=== PATIENT | male | born 1970 | race African-American/Black ===

== ENCOUNTER → 2016-12-27 | Outpatient (CLI) | payer OTHER ==
[~2016-12-27] MED LIST: BACLOFEN10 MG PO; BACTRIM DS TABL1 TA1 PO; BENTYL20 M1 PO; CIPRO PO; CIPRO XR 500 M500 MG PO; CIPRO250 M1 PO; CLEOCIN PO; FIORICET 50-321 EACH PO; FLAGYL PO; FLAGYL250 M1 PO; IBUPROFEN100 MG PO; LORTAB 10-3251 EACH PO; LORTAB 10-5001 EACH PO; LORTAB 5/500 TA1 TA1 PO; LORTAB 5/500 TA1 TA2 PO; METRONIDAZOLE PO; NO MEDICATIONS; NORCO1 TAB 10/3 PO; OTC PAIN RELIEVER; PERCOCET PO; PHENERGAN PO; PHENERGAN25 M1 PO; PRILOSEC PO; SKELAXIN PO; TYLENOL #3 PO; [UNRECOGNIZED DRUG - REMARK]
== END | disposition home or self-care (01) ==
LOC: CAMB 13:49
DX: Z01.812 Encounter for preprocedural laboratory examination (principal); K40.90 Unilateral inguinal hernia, without obstruction or gangrene, not specified as recurrent
CPT/HCPCS: 36415; 80053

== ENCOUNTER → 2016-12-31 | Day surgery (SDC) | payer OTHER ==
[2016-12-27 15:27] LABS: ALBUMIN SERUM 4.1 g/dL (3.5-5.0); BILIRUBIN,TOTAL 0.5 mg/dL (0.2-2.0); CALCIUM SERUM 9.2 mg/dL (8.4-10.2); GLOM FILT RATE Estimated 105.6 mL/min (>60); POTASSIUM 4.3 mmol/L (3.5-5.1); PROTEIN TOTAL SERUM 7.3 g/dL (6.0-8.3)
--- NOTE | ~2016-12-31 | OR ---
Unit #: [id number] #: [id number] Patient: YASMINE MONTAGUE JR [id number] [address] [place], [place] [address] [id number] O MR#: [id number] NAME: YASMINE MONTAGUE JR ROOM: Date of Procedure: 12/31/2016 Admission Date: 12/31/2016 Surgeon: Jed Geiger Jr., M.D. : 1970 Attending Physician: Jed Geiger Jr., M.D. Primary Care Physician: Kiet Garcia M.D. OPERATIVE REPORT INDICATIONS FOR PROCEDURE The patient is a 46-year-old black male, who recently was referred to the office complaining of swelling in the left inguinal area. He was noted to have an incarcerated left inguinal hernia, which was tender and he is brought at this time for repair of this. He understands the procedure including the risks, including that of recurrence, infection, cord injury with injury to the testicle, infection, and hematoma formation, and consents. PREOPERATIVE DIAGNOSIS Incarcerated left inguinal hernia. POSTOPERATIVE DIAGNOSIS Incarcerated left inguinal hernia, noting a portion of colon forming a portion of the wall of the hernia. The hernia itself was direct inguinal hernia. This made up most of the floor of the inguinal canal. ANESTHESIA General with LMA and 0.5% Marcaine with epinephrine locally as a field block. DESCRIPTION OF PROCEDURE Open left inguinal hernia repair using plug and patch technique. DESCRIPTION OF PROCEDURE The patient was positioned in supine position. After being anesthetized, he was prepped and draped in routine fashion for left inguinal hernia repair. Left inguinal area was locally blocked with 0.5% Marcaine with epinephrine and at this point, a transverse incision approximately 3 to 4 inches in length was made over the left inguinal canal. This was carried down through the subcutaneous tissue, down through Iza and Camper fascia and the external oblique fascia. The fibers of external oblique were split from the external ring up to past the internal ring. The ilioinguinal nerve was retracted to avoid any damage and freed from the cord structures. The cord structures were freed from the pubic tubercle back to the internal ring with multiple cremasteric fibers being taken down. There was a large direct inguinal hernia with what appeared to be sigmoid colon within it. This was freed up the cord structures and was very adherent to the cord structures, requiring some meticulous dissection. After this was dissected, it was reduced back into the preperitoneal space and the large direct defect was then plugged with an extra large plug with it being tacked circumferentially with interrupted 0 Ethibond sutures and patch was placed over the floor of the inguinal canal Unit #: [id number] #: [id number] Patient: YASMINE MONTAGUE JR and sutured to the pubic tubercle and all the way up around the cord structures of the internal ring. The wound was irrigated with antibiotic solution. The ilioinguinal nerve was then replaced back beneath the fascia along with the cord structures and the external oblique fascia was closed with a continuous 3-0 Vicryl suture. The wound was irrigated with antibiotic solution. After hemostasis was achieved with Bovie cautery, the Iza and Camper fascia was approximated with interrupted 3-0 Vicryl sutures. Skin edges approximated with stainless-steel skin clips and skin stapling device. Sterile dressings were applied externally. Estimated blood loss less than 75 mL. The patient received less than 1000 mL crystalloid solution during the procedure. Sponges and instrument counts were correct x3. No drains used. No complications. The patient was taken to the recovery room with stable vital signs in satisfactory condition. Dictated by... Jed Geiger Jr., M.Angélica. NISHA/jodie TD: 12/31/2016 22:36 JOB #: [id number] OPERATIVE REPORT Page 1 of 1 X Jed Geiger MD X PROCEDURE OPERATIVE NOTE
== END | disposition home or self-care (01) ==
LOC: CSUR 05:47
PROVIDERS: Surgery
DX: K40.30 Unilateral inguinal hernia, with obstruction, without gangrene, not specified as recurrent (principal); Z98.890 Other specified postprocedural states
CPT/HCPCS: 36415; 80053; J0690; J1100; J1885; J2405; J3010

== ENCOUNTER 2017-03-08 05:45 | Inpatient (IN) | payer OTHER ==
--- NOTE | ~2017-03-08 | OR ---
Unit #: [id number] #: [id number] Patient: YASMINE MONTAGUE JR [id number] [address] [place] [address] [id number] I MR#: [id number] NAME: YASMINE MONTAGUE JR ROOM: 459 Date of Procedure: 03/08/2017 Admission Date: 03/08/2017 Surgeon: Jed Geiger Jr., M.D. : 1970 Attending Physician: Jed Geiger Jr., M.D. Primary Care Physician: Kiet Garcia M.D. OPERATIVE REPORT INDICATIONS FOR PROCEDURE The patient is a 46-year-old black male who has been having intermittent attacks of diverticulitis in the left lower quadrant of his abdomen. He has had documented diverticulosis with diverticulitis, and it was felt he needed a sigmoid resection for this. He was brought in at his request for sigmoid resection. The patient understands the procedure including the risks, including that of anastomotic leak, bleeding, infection, abscess formation, and recurrent diverticulitis and consents. PREOPERATIVE DIAGNOSIS Chronic recurrent diverticulitis. POSTOPERATIVE DIAGNOSIS Chronic recurrent diverticulitis. Noting, no evidence of any acute diverticulitis, but evidence of some chronic inflammatory tissue in the left lower quadrant. ANESTHESIA General with endotracheal intubation. ASSISTANT Eugenio Mcpherson M.D. PROCEDURES PERFORMED Exploratory laparotomy, sigmoid resection with EEA #29-mm anastomosis of the proximal sigmoid to the rectum. DESCRIPTION OF PROCEDURE The patient was positioned in supine position. After being anesthetized and intubated, he was prepped and draped in routine fashion for exploration through a lower midline incision. An incision was made from the suprapubic area up to the umbilicus, carried down through subcutaneous tissue with Bovie cautery and upon opening the peritoneal cavity, there was no free intra-abdominal fluid. Remaining of our incision was opened with a cutting edge of the Bovie cautery. Intra-abdominal exploration was carried out. The patient was noted to have some chronic scar tissue in the area of the sigmoid colon. The rest of the colon was felt to be normal and proximal to this. The sigmoid was freed from its lateral attachments with the Bovie cautery, and the left ureter was identified and avoided with no evidence of any injury. The colon was then freed down towards the peritoneal reflection, and finger tip introduced, surrounded, after the peritoneum was scored on each side. Using the Contour stapler, Unit #: [id number] #: [id number] Patient: YASMINE MONTAGUE JR the distal colon was stapled and divided in routine fashion. Proximal to this, there was also a window created through the mesentery of the proximal sigmoid and at this point, the mesenteric vessels were clamped, divided, and ligated with 0 silk sutures. After mobilizing this loop of the colon, it was then transected and removed, and a 29-mm EEA head was then placed well up into the area of the sigmoid and brought out laterally with the stem being brought out using the trocar technique. The opening of the colon was then closed with a GIANCARLO stapling device, and Dr. Mcpherson then went down below and placed the stapler up through the rectum up into the rectal pouch. It was then deployed out through the anterior rectal wall, and the head was then snapped onto the stem of the stapler, it was then closed, fired, and removed with an excellent anastomosis. The rings were intact on the stapler. The saline was placed in the pelvic area with head up, and air was injected in the rectum. There was no evidence of any air leaks. The irrigation fluid was all completely removed. Then, all lap and sponges were removed, and lap count correct x3. After hemostasis was noted, the midline was closed with interrupted #1 Vicryl sutures with the omentum being brought down in between the abdominal wall in the small bowel loops. After the midline was closed, the subcutaneous tissue was irrigated. Hemostasis was achieved with Bovie cautery. The skin edges were approximated with stainless-steel skin clips and skin stapling device. Sterile dressings were applied externally. Estimated blood loss was less than 100 mL. The patient received less than 2000 mL of crystalloid solution during the procedure. Sponges and instrument counts were correct x3. No drains used. No complications. The patient was taken to the recovery room with stable vital signs in satisfactory condition. Dictated by... Jed Geiger Jr., M.D. JMB/jodie TD: 03/09/2017 03:45 JOB #: [id number] OPERATIVE REPORT Page 1 of 1 X Jed Geiger MD PROCEDURE OPERATIVE NOTE
--- NOTE | ~2017-03-08 | DS ---
Unit #: [id number] #: [id number] Patient: YASMINE MONTAGUE JR [id number] [address] [address] [id number] I MR#: [id number] NAME: YASMINE MONTAGUE JR ROOM: 478 Age: 46 Sex: M Admission Date: 03/08/2017 : 1970 Discharge Date: 03/13/2017 Attending Physician: Jed Geiger Jr., M.D. Primary Care Physician: Kiet Garcia M.D. DISCHARGE SUMMARY ADMITTING AND FINAL DIAGNOSIS Chronic recurrent sigmoid diverticulitis. SECONDARY DIAGNOSIS None. BRIEF SUMMARY The patient is a 46-year-old black male who has had recent attacks of intermittent acute diverticulitis. He has had no significant attacks over the last couple months, and he was brought in at this time for sigmoid resection at his request. He understands the procedure, including the risks, including that of anastomotic leak, abscess formation and infection and consented. He was taken to the operating room after admission for exploratory laparotomy, sigmoid resection. He is presently 4 days to 5 days postop. He is ambulating well, tolerating a diet, having bowel movement and afebrile and in satisfactory condition. His wound is clean and healing well without evidence of infection. Plan will be to discharge the patient home on Sylvester 10 mg/325 mg 1 or 2 p.o. q.8 hours p.r.n. pain. He will be on limited lifting, no more than 5 to 10 pounds, on a regular home diet, keeping his wound clean and dry and calling the office for followup appointment for next week for staple removal. Dictated by... Jed Geiger Jr., M.D. JMB/steph TD: 03/13/2017 14:20 JOB #: [id number] Unit #: [id number] #: [id number] Patient: YASMINE MONTAGUE JR DISCHARGE SUMMARY Page 1 of 1 X Jed Geiger MD X DISCHARGE SUMMARY
[~2017-03-08 05:45] MED LIST changes: -LORTAB 10-3251 EACH PO
[2017-03-09 04:26] LABS: HEMATOCRIT 42.7 % (38.0-50.0); HEMOGLOBIN 13.3 gm/dL (13.0-16.0); MEAN CELL VOLUME 85.5 FL (83-96); MEAN CORPUSCULAR HEMOGLOBIN 26.6 PG (28-34); MEAN CORPUSCULAR HGB CONC 31.1 g/dL (30-36); MEAN PLATELET VOLUME 9.1 FL (6.5-11.5); RED CELL DISTRIBUTION WIDTH 13.9 % (11.0-15.5); WHITE BLOOD COUNT 12.3 X10e3 (4.0-10.5)
[2017-03-09 04:52] LABS: ALBUMIN SERUM 4.1 g/dL (3.5-5.0); BILIRUBIN,TOTAL 1.1 mg/dL (0.2-2.0); CALCIUM SERUM 8.7 mg/dL (8.4-10.2); GLOM FILT RATE Estimated 105.6 mL/min (>60); POTASSIUM 4.8 mmol/L (3.5-5.1); PROTEIN TOTAL SERUM 7.7 g/dL (6.0-8.3)
[2017-03-10 04:40] LABS: HEMATOCRIT 40.4 % (38.0-50.0); HEMOGLOBIN 12.8 gm/dL (13.0-16.0); MEAN CELL VOLUME 83.9 FL (83-96); MEAN CORPUSCULAR HEMOGLOBIN 26.5 PG (28-34); MEAN CORPUSCULAR HGB CONC 31.6 g/dL (30-36); MEAN PLATELET VOLUME 8.6 FL (6.5-11.5); RED BLOOD COUNT 4.82 X10e (3.90-5.60); RED CELL DISTRIBUTION WIDTH 13.9 % (11.0-15.5); WHITE BLOOD COUNT 8.8 X10e3 (4.0-10.5)
[2017-03-10 05:09] LABS: BUN/CREATININE RATIO 7.5; CALCIUM SERUM 8.9 mg/dL (8.4-10.2); CREATININE SERUM 1.2 mg/dL (0.6-1.4); GLOM FILT RATE Estimated 84.8 mL/min (>60); POTASSIUM 4.5 mmol/L (3.5-5.1)
[2017-03-13] MEDS ORDERED: LORTAB 10-3251 EACH PO (09:29)
== END 2017-03-13 09:54 | disposition home or self-care (01) | DRG 330 ==
LOC: CSUR 05:45 → CPACUOF 08:26 → C4B 09:00 → CSUR 09:00 → CPACUOF 10:41 → C4B 10:41 → C4C 03-12 19:39
PROVIDERS: Surgery
PROC: 0DTN0ZZ Resection of Sigmoid Colon, Open Approach (ICD-10-PCS; principal; 2017-03-08 07:30)
DX: K57.32 Diverticulitis of large intestine without perforation or abscess without bleeding (principal); K56.7 Ileus, unspecified
CPT/HCPCS: 80048; 80053; 85027; 88307; 94010; 94760; 94761; 94762; C9113; J0131; J0330; J0360; J1100; J1170; J1650; J2250; J2270; J2405; J3010; J3370

== ENCOUNTER 2017-03-14 01:09 | Emergency (ER) | payer OTHER ==
[~2017-03-14 01:09] MED LIST changes: +LORTAB 10-3251 EACH PO
== END 2017-03-14 02:02 | disposition home or self-care (01) ==
LOC: SED 01:09
DX: M25.512 Pain in left shoulder (principal); M79.602 Pain in left arm
CPT/HCPCS: 99283

== ENCOUNTER 2017-03-26 10:09 | Emergency (ER) | payer OTHER | END 2017-03-26 10:58 | disposition home or self-care (01) | LOC: SED 10:09 | DX: T78.49XA Other allergy, initial encounter (principal) | CPT/HCPCS: 99282 ==